=== PATIENT | male | born 1980 | race Caucasian/White ===

== ENCOUNTER 2017-11-13 19:50 | Emergency (ER) | payer OTHER ==
[~2017-11-13] VITALS: Ht 180.3 cm; Wt 68.1 kg
[~2017-11-13 19:50] MED LIST: BACLOFEN10 MG PO; LIDODERM 5% P1 PATCH TD; METHADONE10 MG PO; NAPROSYN500 MG PO; ROBAXIN500 MG PO; ULTRAM50 MG PO
[2017-11-13] MEDS ORDERED: VOLTAREN 1% GE100 GM TP (20:36)
[2017-11-13] MEDS ORDERED: LIDODERM 5% P1 PATCH TD (20:36)
[2017-11-13] MEDS ORDERED: MOTRIN800 MG PO (20:36)
[2017-11-13] MEDS ORDERED: SKELAXIN800 MG PO (20:36)
[2017-11-13 21:08] VITALS: BP 144/68
== END 2017-11-13 21:07 | disposition home or self-care (01) ==
LOC: EME 19:50
DX: M54.41 Lumbago with sciatica, right side (principal); F17.200 Nicotine dependence, unspecified, uncomplicated
CPT/HCPCS: 99281; 99284; J1885

== ENCOUNTER 2017-11-26 16:22 | Emergency (ER) | payer OTHER ==
[~2017-11-26] VITALS: Ht 180.3 cm; Wt 69.7 kg
[~2017-11-26 16:22] MED LIST changes: +MOTRIN800 MG PO; +SKELAXIN800 MG PO; +VOLTAREN 1% GE100 GM TP
[2017-11-26] MEDS ORDERED: MOTRIN800 MG PO (18:11)
[2017-11-26] MEDS ORDERED: KEFLEX500 MG PO (18:11)
[2017-11-26 18:22] VITALS: BP 119/73
== END 2017-11-26 18:23 | disposition home or self-care (01) ==
LOC: EME 16:22
DX: S60.420A Blister (nonthermal) of right index finger, initial encounter (principal); M79.89 Other specified soft tissue disorders; X58.XXXA Exposure to other specified factors, initial encounter; F17.200 Nicotine dependence, unspecified, uncomplicated
CPT/HCPCS: 73140; 99281; 99283